=== PATIENT | male | born 1955 | race Caucasian/White ===

== ENCOUNTER 2023-05-03 13:04 | Emergency (ER) | payer BC, SELFPAY ==
[2023-05-03 13:12] VITALS: BP 180/98
[2023-05-03 13:39] VITALS: BP 166/73
[2023-05-03 13:40] VITALS: BMI 34.3
[2023-05-03 13:53] LABS: % Basophils 0.4 % (0-2); % Eosinophils 1.5 % (0-6); % Immature Granulocytes 0.3 % (0-0.5); % Lymphocytes 15.8 % (20.5-51.1); Absolute Eosinophils 0.2 10^3/uL (0-0.7); Absolute Lymphocytes 1.6 10^3/uL (1.2-3.4); Absolute Monocytes 0.6 10^3/uL (0.1-0.6); Absolute Neutrophils 7.6 10^3/uL (1.4-6.5); Hematocrit 44.2 % (39.0-52.0); Hemoglobin 14.5 g/dL (13.0-18.0); Mean Corp Hgb Conc. 32.8 g/dL (33.0-37.0); Mean Corpuscular Hgb 28.3 pg (27.0-31.0); Mean Corpuscular Volume 86.3 fL (80.0-94.0); Mean Platelet Volume 9.9 fL (7.4-10.4); Nucleated Red Blood Cells % 0 % (-); Platelet Count 238 10^3/uL (130-400); Red Blood Cell Count 5.12 10^6/uL (4.70-6.10); Red Cell Dist. Width 13.1 % (11.5-14.5)
[2023-05-03 14:00] VITALS: BP 149/72
[2023-05-03 14:05] LABS: ALT (SGPT) 19 U/L (0-50); AST (SGOT) 24 U/L (17-59); Albumin 4.3 g/dl (3.5-5.0); Alkaline Phosphatase 52 U/L (38-126); Blood Urea Nitrogen 17 mg/dl (9-20); Calcium 9.5 mg/dl (8.4-10.2); Carbon Dioxide 30 mmol/L (22-30); Chloride 102 mmol/L (98-107); Estimated Creatinine Clearance 85 ml/min; Glucose 114 mg/dl (70-99); Sodium 139 mmol/L (135-145); Total Bilirubin 0.9 mg/dl (0.2-1.3); Total Protein 7.1 g/dl (6.3-8.2); eGFR > 60.00
[2023-05-03 14:07] LABS: INR 1.01; PT 13.1 Sec (11.4-14.6)
[2023-05-03 14:19] LABS: Troponin I < 0.012 ng/ml
--- NOTE | 2023-05-03 15:46 | ED.GENMED ---
History of Present Illness
General
Chief Complaint: Chest Pain
Source: patient and spouse
Exam Limitations: none
Time Seen by Provider: 05/03/23 14:11
Travel History
Have you had any contact with someone who has COVID-19?: No
Do you have any symptoms of coronavirus? Fever > 100 degrees, chills, cough, shortness of breath, sore throat, loss of taste or smell, muscle aches, or headache?: No
History of Present Illness
History of Present Illness:
67-year-old male who presents after he had some discomfort yesterday. Patient states he was cleaning up the basement and noticed some mild discomfort in the upper back and chest. He states that it was very minor and he really did not think much of
it debated to come for evaluation today. He had no new symptoms today. The patient states that lasted a few hours but he suspects it was musculoskeletal as the pain was worse when he moved. The patient states the pain is completely resolved since
yesterday and has not returned. He denies shortness of breath or palpitations. No diaphoresis. Does have a history of coronary disease. 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
Past History
Past History
ED Past Medical History: CAD, HTN and Hypercholesterolemia
ED Past Surgical History: Cardiac
Social History
Tobacco: Non-smoker
Alcohol: Occasional
Family History
Family History: CAD
Phy Exam
Physical Exam
Physical Exam:
CONSTITUTIONAL Patient alert and oriented to person, place and time. Well-appearing. Vital signs reviewed.
HEAD atraumatic, normocephalic.
EYES eyelids normal to inspection, Pupils equally round and reactive to light, Extraocular muscles intact, Conjunctiva normal, Sclera normal.
NECK normal range of motion, Trachea midline, no jugular venous distention.
RESPIRATORY CHEST No respiratory distress noted, Chest expansion equal, Bilateral breath sounds clear.
CARDIOVASCULAR regular rate and rhythm, Heart sounds normal.
ABDOMEN abdomen nontender, Bowel sounds normal. No distention.
BACK normal inspection, no obvious deformities
UPPER EXTREMITY range of motion normal, Motor strength normal, no cyanosis, no edema.
LOWER EXTREMITY range of motion normal, Motor strength normal, no cyanosis, no edema.
NEURO Speech normal, No focal motor deficits, Bryant coma scale 15, Memory normal, Cranial Nerves intact to screening exam.
SKIN skin warm, dry, and normal in color.
PSYCHIATRIC patient oriented to person place and time, Normal affect.
Scores
Heart Score for Chest Pain Patients
STEMI patient?: No
History: Slightly or Non-Suspicious
ECG: Normal
Age: >/= 65 years
Risk Factors: >/= 3 Risk Factors or History of CAD
Troponin: </= Normal Limit
Heart Score for Chest Pain Patients: 4
Heart Score Risk: 20.3% MACE over next 6 weeks
Course
Orders/Labs/Results
Orders:
Orders
05/03/23 13:12
EKG [Electrocardiogram (*1)] Urgent
Reason for Study: Chest Pain
EKG- Treatment ONCE
05/03/23 13:40
Complete Blood Count/With Diff Urgent
Comprehensive Metabolic Panel Urgent
PT/INR [Prothrombin Time] Urgent
Troponin I Urgent
05/03/23 14:15
CR Chest - 2 Views Urgent
Comment:
Reason For Exam: cp
Abnormal Lab Results
05/03/23
13:40
MCHC 32.8 L g/dL
(33.0-37.0)
Absolute Neuts (auto) 7.6 H 10^3/uL
(1.4-6.5)
Neutrophils % 76.0 H %
(42.2-75.2)
Lymphocytes % 15.8 L %
(20.5-51.1)
Glucose 114 H mg/dl
(70-99)
05/03/23 13:40
05/03/23 13:40
Vital Signs
Initial and Last Documented VS:
Initial Vital Signs
Temp Pulse Resp BP Pulse Ox
98.1 F 69 18 180/98 98
05/03/23 13:12 05/03/23 13:12 05/03/23 13:12 05/03/23 13:12 05/03/23 13:12
Last Documented Vital Signs
Temp Pulse Resp BP Pulse Ox
98.1 F 58 16 149/72 95
05/03/23 13:12 05/03/23 14:45 05/03/23 14:45 05/03/23 14:00 05/03/23 14:45
MDM/Problems Addressed
Differential Diagnosis Includes:
ACS, musculoskeletal etiology, PE, pneumothorax, pneumonia
MDM/Problems Addressed:
Chest pain
*Radiology
Radiology exam reviewed: radiology read reviewed
*Pulse Oximetry
Patient hypoxic: no
*EKG
Interpreted by ED Provider?: Yes
Interpretation: abnormal
Rate: bradycardiac
[place]: left axis deviation
Interval: normal interval
Ischemia: no ischemia
*[facility] Interpretation
Rate: normal
Interpretation: normal
Rhythm: sinus
*Critical Care Note
Total Time (30-74mins, 75-104mins- exclusive of procedures): Not Applicable
Data Reviewed
Review of Other/Old Records Reveals: Discharge Summary (Prior discharge summary reviewed) and Other (Prior cardiac catheterization reviewed)
Source: patient and family
Prescriptions/Medications Considered But Not Given:
Considered heparin but troponin negative. Symptoms were yesterday.
Patient Management
Escalation/DeEscalation of care consider admission/obs:
Patient appears well. Event was yesterday and patient is had no further symptoms. I do think she is at high risk but he is stable for outpatient follow-up with cardiology. Recommended avoidance of strenuous or exertional activity until cleared
ED Attending Note
-
Portions of this chart may have been created with voice recognition software.� Occasional wrong word or��sound alike� substitutions may have occurred due to the inherent limitations of voice recognition software.
Discharge Plan
Departure
Patient Disposition: Home (Routine Discharge)
Date of Disposition: 05/03/23
Time of Disposition: 15:56
Patient with high blood pressure during this ER visit?: Yes
Discharge Problem:
Chest pain
Instructions: Chest Pain [facility] Follow Up, Chest Pain NON-[facility] Auricular Therapist Follow Up
Prescriptions:
No Action
aspirin 81 MG tablet,chewable
81 mg PO DAILY Qty: 0 0RF
telmisartan 80 mg Tablet
80 mg PO DAILY
amlodipine 5 mg Tablet
5 mg PO BID
Centrum Silver 1 EACH tablet
1 ea PO DAILY
Brilinta 90 mg Tablet
90 mg PO BID Qty: 60 11RF
rosuvastatin 40 mg Tablet
40 mg PO QPM Qty: 30 11RF
Rx Instructions:
Increase rosuvastatin 40 mg (two 20 mg tablets or one 40 mg tablet) once a day
metoprolol tartrate 100 mg Tablet
100 mg PO BID Qty: 60 11RF
Rx Instructions:
Increase Lopressor (metoprolol tartrate) to 100 mg (two 50 mg tablets or one 100 mg tablet) twice a day
ezetimibe 10 mg Tablet
10 mg PO HS Qty: 30 11RF
Referrals:
Martha Slater MD [Family Provider] -
Activity Restrictions/Additional Instructions:
Please avoid strenuous or exertional activity until cleared by cardiology. Please see cardiology in the next 48 hours for reevaluation. Return immediately for worsening pain, shortness breath, palpitations, sweating, nausea, weakness of any kind,
numbness, tingling or any other concerns.
Cardiology has been notified and a follow up appointment has been requested. Someone will call you on the next business day to schedule a follow up appointment.
Interventions
Interventions:
*Risk Screen - Suicide Last Done: 05/03/23 13:41
*General Assessment Last Done: 05/03/23 13:12
*Neglect/Abuse Screening Last Done: 05/03/23 13:41
ED- Fall Risk Assessment Last Done: 05/03/23 13:41
*ED COVID-19 Vaccine History Last Done: 05/03/23 13:12
*Nursing Disposition Last Done: 05/03/23 16:30
ED- Cardiac Assessment Last Done: 05/03/23 13:41
Discharge Date and Time
Discharge Date/Time: 05/03/23 16:31
== END 2023-05-03 16:31 | disposition home or self-care (01) ==
LOC: EMR 13:04
PROVIDERS: EMERGENCY PHYSICIAN Emergency Medicine; FAMILY PHYSICIAN Internal Medicine
DX: R07.89 Other chest pain (principal); I10 Essential (primary) hypertension
CPT/HCPCS: 99285; 71046; 80053; 84484; 85025; 85610; 93005